=== PATIENT | female | born 1995 | race Caucasian/White ===

== ENCOUNTER 2020-11-04 14:34 | Emergency (ER) | payer MEDICAID ==
[~2020-11-04] VITALS: Ht 175.3 cm; Wt 95.2 kg
[2020-11-04] MEDS ORDERED: PROZAC40 MG PO (15:42)
[2020-11-04] MEDS ORDERED: PREDNISONE20 MG PO (16:17)
--- OUTSIDE RECORDS SUMMARY | 2020-11-04 16:42 | XMS ---
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 Margo VISIT COUNT (12 MO.) 1 [facility] Nolan TOTAL 1 NOTE: Visits indicate total known visits. ED/UCC VISIT TRACKING (12 MO.) 11/04/2020 14:[address] [facility] [place] TYPE: Emergency COMPLAINT: - BODY RASH INPATIENT VISIT TRACKING (12 MO.) No inpatient visits to display in this time frame [email or web address]
== END 2020-11-04 16:26 | disposition home or self-care (01) ==
LOC: ED 14:34
DX: L50.9 Urticaria, unspecified (principal); F17.200 Nicotine dependence, unspecified, uncomplicated; Z79.899 Other long term (current) drug therapy
CPT/HCPCS: 99282; J7512

== ENCOUNTER 2022-04-03 19:17 | Emergency (ER) | payer OTHER ==
[~2022-04-03] VITALS: Ht 175.3 cm; Wt 95.2 kg
[~2022-04-03 19:17] MED LIST: PREDNISONE20 MG PO; PROZAC40 MG PO
--- OUTSIDE RECORDS SUMMARY | 2022-04-03 19:20 | XMS ---
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 Zacarias has no Care Guidelines for this patient. Margo VISIT COUNT (12 MO.) 1 FELICE Nolan TOTAL 1 NOTE: Visits indicate total known visits. ED/UCC VISIT TRACKING (12 MO.) 04/03/2022 19:19 [facility] [place] TYPE: Emergency COMPLAINT: - N/V FEVER INPATIENT VISIT TRACKING (12 MO.) No inpatient visits to display in this time frame [email or web address]
[2022-04-03] MEDS ORDERED: BENZONATATE100 MG PO (20:58)
[2022-04-03] MEDS ORDERED: ONDANSETRON ODT8 MG PO (20:58)
== END 2022-04-03 21:28 | disposition home or self-care (01) ==
LOC: ED 19:17
DX: J10.1 Influenza due to other identified influenza virus with other respiratory manifestations (principal); Z20.822 Contact with and (suspected) exposure to COVID-19; F17.200 Nicotine dependence, unspecified, uncomplicated
CPT/HCPCS: 87502; 94640; 96372; 99283-25; A9270; C9803; J1885; U0003

== ENCOUNTER 2022-04-06 10:25 | Emergency (ER) | payer OTHER ==
[~2022-04-06] VITALS: Ht 175.3 cm; Wt 99.8 kg
[~2022-04-06 10:25] MED LIST changes: +BENZONATATE100 MG PO; +ONDANSETRON ODT8 MG PO
--- OUTSIDE RECORDS SUMMARY | 2022-04-06 10:29 | XMS ---
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 Zacarias has no Care Guidelines for this patient. [facility]: Visits indicate total known visits. ED/UCC VISIT TRACKING (12 MO.) [facility] COMPLAINT: - WEAKNESS, DARK URINE, FEVER, VOMITING, COUGH 04/03/2022 19:[address] [facility] [place] TYPE: Emergency COMPLAINT: - N/V FEVER DIAGNOSES: - Fever, unspecified - Influenza due to other identified influenza virus with other respiratory manifestations - Contact with and (suspected) exposure to COVID-19 - Nicotine dependence, unspecified, uncomplicated INPATIENT VISIT TRACKING (12 MO.) No inpatient visits to display in this time frame [email or web address]
[2022-04-06] MEDS ORDERED: PROMETHAZINE HC25 M1 PO (12:52)
== END 2022-04-06 14:00 | disposition home or self-care (01) ==
LOC: ED 10:25
DX: J10.1 Influenza due to other identified influenza virus with other respiratory manifestations (principal); F17.200 Nicotine dependence, unspecified, uncomplicated
CPT/HCPCS: 36415; 71045; 80053; 81001; 84703; 85025; 96374; 99283-25; J2405; J7030

== ENCOUNTER 2023-03-09 | Inpatient (IN) | payer OTHER ==
[~2023-03-09] VITALS: Ht 175.3 cm; Wt 108.9 kg
[~2023-03-09] MED LIST changes: +PROMETHAZINE HC25 M1 PO
[2023-03-09 00:47] LABS: HEMATOCRIT 36.5 % (35.0-50.0); HEMOGLOBIN 12.4 g/dL (12.0-18.0); MCH 29.7 (27-36); MCV 87.3 fl (81-99); RBC 4.18 M/ul (4.3-5.7); RDW 13.1 (10.5-15.0)
[2023-03-09 01:09] VITALS: BP 126/74
[2023-03-09 04:30] LABS: INFLUENZA B NAA NEGATIVE (NEGATIVE); RESPIRATORY SYNCYTIAL VIR NAA NEGATIVE (NEGATIVE)
[2023-03-09 04:31] LABS: ABO O; ANTIBODY SCREEN NEGATIVE; RH POSITIVE
[2023-03-09 05:00] LABS: AMPHETAMINES, URINE NEGATIVE (NEGATIVE); BARBITURATES, URINE NEGATIVE (NEGATIVE); BENZODIAZEPINE, URINE NEGATIVE (NEGATIVE); BUPRENORPHINE, URINE POSITIVE (NEGATIVE); CANNABINOID, URINE NEGATIVE (NEGATIVE); COCAINE, URINE NEGATIVE (NEGATIVE); ECSTASY, URINE NEGATIVE (NEGATIVE); FENTANYL, URINE NEGATIVE (NEGATIVE); METHADONE, URINE NEGATIVE (NEGATIVE); OPIATES, URINE NEGATIVE (NEGATIVE); OXYCODONE, URINE NEGATIVE (NEGATIVE); PHENCYCLIDINE, URINE NEGATIVE (NEGATIVE)
--- NOTE | 2023-03-09 20:56 | PR ---
[facility] [address] [place], [place] [address] Signed Progress Notes IP Datetime Report Generated by CPN: 03/09/2023 20:56 PROGRESS NOTES: [id number] Impression: Normal Progression of Labor; Reassuring Heart Rate Procedures: Artificial ROM Plan: Continue Present Management; Anesthesia Consult Informed Consent Obtain: Vaginal Delivery Other Informed Consents: Reviewed EFW and adequate pelvis VITAL SIGNS: [id number] Vital Signs: Reviewed; Within Normal Limits EXAM: [id number] Dilatation: 4.5 Effacement: 70 Station: -1 Contractions: Irregular MEMBRANES: [id number] ROM Note: No leaking noted Comments: Pt seen and examined. Doing well. Feeling irregular contraction. Discussed plan for induction. Cervix now 4.5 / 80 / -1 and adequate. Vertex well applied. Recommended AROM and pt agrees. Desires epidural. Will check hourly blood glucose and follow intrapartum glucose protocol. Reviewed adequate pelvis and prior weight, EFW, and adequate pelvis. All questions answered. FETUS A: [id number] FHR Baseline: 120 Variability: Moderate 6-25bpm Accelerations: 15X15 Decelerations: None FHR Category: Category I Presentation: Vertex Comments on Fetus A: No evidence of metabolic acidosis FETUS B: [id number] Signing Physician: Nirmala Tapia DO Copies: ~ *Electronically Signed* 03/09/232055 NIRMALA TAPIA (VERONICA) DO PATIENT NAME: LIZETH DALE PROGRESS NOTE DATE OF : 89 PHYSICIAN: NIRMALA TAPIA) DO RPT #: [id number] REPORT IS CONFIDENTIAL AND NOT TO BE RELEASED WITHOUT AUTHORIZATION
--- NOTE | 2023-03-09 22:35 | PR ---
[facility] [address] [place], [place] [address] Signed Progress Notes IP Datetime Report Generated by CPN: 03/09/2023 22:35 PROGRESS NOTES: [id number] Impression: Normal Progression of Labor; Reassuring Heart Rate Procedures: Sterile Vag Exam Plan: Anticipate Vaginal Delivery Informed Consent Obtain: Vaginal Delivery Other Informed Consents: Reviewed EFW and adequate pelvis VITAL SIGNS: [id number] Vital Signs: Reviewed; Within Normal Limits EXAM: [id number] Dilatation: 10.0 Effacement: 80 Station: -1 Contractions: q 2 min MEMBRANES: [id number] ROM Note: No leaking noted Comments: Pt seen and examined. Doing well. Comfortable w/ epidural. Cx 10 / 2+. Anticipate soon. All questions answered. FETUS A: [id number] FHR Baseline: 120 Variability: Moderate 6-25bpm Accelerations: 15X15 Decelerations: Variable FHR Category: Category II Presentation: Vertex Comments on Fetus A: No evidence of metabolic acidosis FETUS B: [id number] Signing Physician: Nirmala Tapia DO Copies: ~ *Electronically Signed* 03/09/23 8611 NIRMALA TAPIA (VERONICA) DO PATIENT NAME: LIZETH DALE PROGRESS NOTE DATE OF : [birth year] PHYSICIAN: NIRMALA TAPIA (JD) DO RPT #: [id number] REPORT IS CONFIDENTIAL AND NOT TO BE RELEASED WITHOUT AUTHORIZATION
[2023-03-10 05:37] LABS: HEMATOCRIT 36.5 % (35.0-50.0); HEMOGLOBIN 12.1 g/dL (12.0-18.0); MCH 29.6 (27-36); MCHC 33.3 g/dl (30-36); MCV 88.9 fl (81-99); RBC 4.1 M/ul (4.3-5.7); RDW 13.2 (10.5-15.0)
--- NOTE | 2023-03-10 07:27 | PR ---
[facility] [address] [facility] [place], [place] [address] Signed PP Progress Notes Datetime Report Generated by CPN: 03/10/2023 07:27 SUBJECTIVE: [id number] Pain: Within Normal Limits Nausea/Vomiting: Denies Flatus: Yes Bowel Movement: No Vital Signs: [id number] Vital Signs: Reviewed; Within Normal Limits Cardiovascular: Normal Respiratory: Normal Abdomen/Uterus: Normal Lochia: Normal Vulva/Perineum: Not Done Breasts: Not Done CVA Tenderness: Normal Extremities: Normal Incision: Not Applicable Progress: Normal Exam Comments: Fundus firm U-2 nontender. IMPRESSION/PLAN/PROCEDURES: [id number] Impression: Normal Progression Plan: Continue Present Management Progress Notes: Pt seen and examined. Doing well. Ambulating voiding and tolerating full diet. Pain and lochia minimal. . No concerns. Anticipate d/c home tomorrow. Signing Physician: Nirmala Tapia DO Copies: ~ *Electronically Signed* 03/10/23 0727 NIRMALA TAPIA (VERONICA) DO PATIENT NAME: LIZETH DALE PROGRESS NOTE DATE OF : 89 PHYSICIAN: NIRMALA TAPIA) DO RPT #: [id number] REPORT IS CONFIDENTIAL AND NOT TO BE RELEASED WITHOUT AUTHORIZATION
--- NOTE | 2023-03-11 09:38 | PR ---
[facility] [address] [place], [place] [address] Signed PP Progress Notes Datetime Report Generated by CPN: 03/11/2023 09:38 SUBJECTIVE: [id number] Pain: Within Normal Limits Nausea/Vomiting: Denies Flatus: Yes Bowel Movement: No Vital Signs: [id number] Vital Signs: Reviewed; Within Normal Limits Cardiovascular: Not Done Respiratory: Not Done Abdomen/Uterus: Normal Lochia: Normal Vulva/Perineum: Not Done Breasts: Not Done CVA Tenderness: Not Done Extremities: Normal Incision: Not Applicable Progress: Normal Exam Comments: Fundus firm U-2 nontender. IMPRESSION/PLAN/PROCEDURES: [id number] Impression: Normal Progression Plan: Discharge Procedures: None Progress Notes: S: 27 s/p vaginal delivery. PPD #2. Doing well. Denies FARAH, CP, SOB, F/C, N/V, RUQ pain, changes in vision, vaginal discharge. Tolerating regular diet, ambulating, voiding own, pain controlled. O: AFVSS Abd: Soft, non-tender, fundus firm and below umbilicus. Musc: RIVERA. A/P: Patient well. Will discharge home today. Signing Physician: William Kenney MD *Electronically Signed* 03/11/23 0938 WILLIAM KENNEY MD PATIENT NAME: LIZETH DALE PROGRESS NOTE DATE OF : 89 PHYSICIAN: WILLIAM KENNEY MD RPT #: [id number] REPORT IS CONFIDENTIAL AND NOT TO BE RELEASED WITHOUT AUTHORIZATION
--- NOTE | 2023-03-11 10:31 | NUR ---
FAMILY DENIED NEEDS. CONSENTED TO PRAYER. PRAYED FOR GOOD BEGINNINGS AND ONGOING BLESSING.
== END 2023-03-11 14:05 | disposition home or self-care (01) | DRG 806 ==
LOC: FBC
PROVIDERS: ADMIT Obstetrics & Gynecology; ATTEND Obstetrics & Gynecology
PROC: 10E0XZZ Delivery of Products of Conception, External Approach (ICD-10-PCS; principal; 2023-03-09)
PROC: 3E0R3BZ Introduction of Anesthetic Agent into Spinal Canal, Percutaneous Approach (ICD-10-PCS; 2023-03-09)
PROC: 00HU33Z Insertion of Infusion Device into Spinal Canal, Percutaneous Approach (ICD-10-PCS; 2023-03-09)
PROC: 10907ZC Drainage of Amniotic Fluid, Therapeutic from Products of Conception, Via Natural or Artificial Opening (ICD-10-PCS; 2023-03-09)
PROC: 0HQ9XZZ Repair Perineum Skin, External Approach (ICD-10-PCS; 2023-03-09)
DX: O24.424 Gestational diabetes mellitus in childbirth, insulin controlled (principal); F11.20 Opioid dependence, uncomplicated; Z37.0 Single live birth; O99.324 Drug use complicating childbirth; Z11.52 Encounter for screening for COVID-19; O76 Abnormality in fetal heart rate and rhythm complicating labor and delivery; O70.0 First degree perineal laceration during delivery; Z3A.38 38 weeks gestation of pregnancy; O69.1XX0 Labor and delivery complicated by cord around neck, with compression, not applicable or unspecified; O99.214 Obesity complicating childbirth; Z87.891 Personal history of nicotine dependence
CPT/HCPCS: 01960; 36415; 80307; 85027; 86850; 86900; 86901; 87502; A9270; J2590; U0002